=== PATIENT | male | born 1950 | race Caucasian/White ===

== ENCOUNTER 2017-11-06 11:03 | Inpatient (IN) | payer MEDICARE, BC ==
[~2017-11-06 11:03] MED LIST: ACET500 PO; ALLER-EASE180 MG PO; Flovent 110 MCG12 GM INH; NASACORT10.8 ML; Nexium40 MG PO; SALM50IP INH; TAMS.4ER PO
[2017-11-06 11:27] LABS: Source, Urine Clean Catch
[2017-11-06 11:29] LABS: Bilirubin, Urine Neg (Neg); Blood, Urine 2+ (Neg); Glucose Qualitative, Urine Neg (Neg); Ketones, Urine 4+ (Neg); Leukocyte Esterase, Urine 2+ (Neg); Nitrite, Urine Neg (Neg); Protein, Urine 2+ (Neg); Urobilinogen, Urine NORM (Normal)
[2017-11-06 11:34] LABS: Appearance, Urine Hazy (Clear); Color, Urine Yellow (P-Yellow)
[2017-11-06 11:35] LABS: White Blood Cells, Urine TNTC /hpf (0-5)
[2017-11-06 11:36] LABS: Bacteria Few /hpf; Mucus Light (0-Heavy); Squamous Epithelial Cells Not Seen /hpf (Few)
[2017-11-06 12:41] LABS: BASOPHILS ABSOLUTE AUTO 0.06 K/mm3 (0.00-0.23); BASOPHILS PERCENT AUTO 0 % (0-2); EOSINOPHILS ABSOLUTE AUTO 0.05 K/mm3 (0.00-0.68); EOSINOPHILS PERCENT AUTO 0 % (0-6); IMMATURE GRAN ABSOLUTE AUTO 0.34 K/mm3 (0.00-0.10); IMMATURE GRAN PERCENT AUTO 1 % (0-1); LYMPHOCYTES ABSOLUTE AUTO 3.49 K/mm3 (0.84-5.20); LYMPHOCYTES PERCENT AUTO 13 % (21-46); MONOCYTES ABSOLUTE AUTO 1.77 K/mm3 (0.16-1.47); MONOCYTES PERCENT AUTO 7 % (4-13); Mean Corpuscular HGB 30.5 pg (26.0-34.0); Mean Corpuscular HGB Conc 33.3 g/dL (31.5-36.5); Mean Corpuscular Volume 92 fL (80-100); Mean Platelet Volume 9.5 fL (9.1-12.4); NEUTROPHILS ABSOLUTE AUTO 21.29 K/mm3 (1.96-9.15); NEUTROPHILS PERCENT AUTO 79 % (41-73); Platelet Count 255 K/mm3 (150-400); RDW Coefficient Variation 13.2 % (11.7-14.2); RDW Standard Deviation 44.6 fL (35.1-46.3); Red Blood Cell Count 4.92 M/mm3 (4.30-5.90)
[2017-11-06 12:53] LABS: Anion Gap 10 mmol/L (6-16); Blood Urea Nitrogen 17 mg/dL (8-24); Bun/Creatinine Ratio 18.6 (12.0-20.0); CO2, Blood 25 mmol/L (21-32); Chloride, Blood 103 mmol/L (98-108); Creatinine, Blood 0.91 mg/dL (0.60-1.20); Glomerular Filtration Rate >60 (60-); Glucose, Blood 108 mg/dL (70-99); Sodium, Blood 138 mmol/L (136-145)
[2017-11-06] MEDS ORDERED: Zyprexa10 MG PO (13:43)
[2017-11-06] MEDS ORDERED: Lotrisone Cream45 GM TOP (13:43)
[2017-11-06] MEDS ORDERED: ALLEGRA ALLERG180 MG PO (13:49)
[2017-11-06] MEDS ORDERED: NASACORT10.8 ML (13:51)
[2017-11-07 05:16] LABS: BASOPHILS ABSOLUTE AUTO 0.05 K/mm3 (0.00-0.23); BASOPHILS PERCENT AUTO 0 % (0-2); EOSINOPHILS ABSOLUTE AUTO 0.02 K/mm3 (0.00-0.68); EOSINOPHILS PERCENT AUTO 0 % (0-6); Hematocrit 37.6 % (37.0-53.0); Hemoglobin 12.2 g/dL (13.5-17.5); IMMATURE GRAN ABSOLUTE AUTO 0.22 K/mm3 (0.00-0.10); IMMATURE GRAN PERCENT AUTO 1 % (0-1); LYMPHOCYTES ABSOLUTE AUTO 2.59 K/mm3 (0.84-5.20); LYMPHOCYTES PERCENT AUTO 11 % (21-46); MONOCYTES ABSOLUTE AUTO 1.87 K/mm3 (0.16-1.47); MONOCYTES PERCENT AUTO 8 % (4-13); Mean Corpuscular HGB Conc 32.4 g/dL (31.5-36.5); Mean Corpuscular Volume 92 fL (80-100); Mean Platelet Volume 9.5 fL (9.1-12.4); NEUTROPHILS ABSOLUTE AUTO 19.26 K/mm3 (1.96-9.15); NEUTROPHILS PERCENT AUTO 80 % (41-73); Platelet Count 235 K/mm3 (150-400); RDW Coefficient Variation 13.2 % (11.7-14.2); RDW Standard Deviation 44.7 fL (35.1-46.3); Red Blood Cell Count 4.07 M/mm3 (4.30-5.90); White Blood Cell Count 24.01 K/mm3 (4.00-11.30)
[2017-11-07 05:45] LABS: Anion Gap 10 mmol/L (6-16); Blood Urea Nitrogen 10 mg/dL (8-24); Bun/Creatinine Ratio 12.7 (12.0-20.0); CO2, Blood 22 mmol/L (21-32); Chloride, Blood 109 mmol/L (98-108); Creatinine, Blood 0.79 mg/dL (0.60-1.20); Glomerular Filtration Rate >60 (60-); Glucose, Blood 96 mg/dL (70-99); Potassium, Blood 4.3 mmol/L (3.5-5.5); Sodium, Blood 141 mmol/L (136-145)
[2017-11-07 06:00] LABS: Calcium, Blood 7.9 mg/dL (8.5-10.1)
[2017-11-09 05:33] LABS: BASOPHILS ABSOLUTE AUTO 0.05 K/mm3 (0.00-0.23); BASOPHILS PERCENT AUTO 1 % (0-2); EOSINOPHILS ABSOLUTE AUTO 0.27 K/mm3 (0.00-0.68); EOSINOPHILS PERCENT AUTO 3 % (0-6); Hematocrit 40.7 % (37.0-53.0); Hemoglobin 13.4 g/dL (13.5-17.5); IMMATURE GRAN ABSOLUTE AUTO 0.09 K/mm3 (0.00-0.10); IMMATURE GRAN PERCENT AUTO 1 % (0-1); LYMPHOCYTES ABSOLUTE AUTO 3.21 K/mm3 (0.84-5.20); LYMPHOCYTES PERCENT AUTO 31 % (21-46); MONOCYTES ABSOLUTE AUTO 0.57 K/mm3 (0.16-1.47); MONOCYTES PERCENT AUTO 5 % (4-13); Mean Corpuscular HGB 29.9 pg (26.0-34.0); Mean Corpuscular HGB Conc 32.9 g/dL (31.5-36.5); Mean Corpuscular Volume 91 fL (80-100); Mean Platelet Volume 8.8 fL (9.1-12.4); NEUTROPHILS ABSOLUTE AUTO 6.35 K/mm3 (1.96-9.15); NEUTROPHILS PERCENT AUTO 60 % (41-73); Platelet Count 323 K/mm3 (150-400); RDW Coefficient Variation 13.1 % (11.7-14.2); RDW Standard Deviation 43.5 fL (35.1-46.3); Red Blood Cell Count 4.48 M/mm3 (4.30-5.90); White Blood Cell Count 10.54 K/mm3 (4.00-11.30)
[2017-11-09] MEDS ORDERED: SACC250C PO (12:28)
[2017-11-09] MEDS ORDERED: AMOX875 PO (12:29)
== END 2017-11-09 15:18 | disposition home or self-care (01) | DRG 872 ==
LOC: ER 11:03 → MEDS 14:37
PROVIDERS: Emergency Medicine; Hospitalist
DX: A41.9 Sepsis, unspecified organism (principal); G44.40 Drug-induced headache, not elsewhere classified, not intractable; N39.0 Urinary tract infection, site not specified; J45.909 Unspecified asthma, uncomplicated; N41.9 Inflammatory disease of prostate, unspecified; B95.1 Streptococcus, group B, as the cause of diseases classified elsewhere; R20.8 Other disturbances of skin sensation; K21.9 Gastro-esophageal reflux disease without esophagitis; N40.1 Benign prostatic hyperplasia with lower urinary tract symptoms; R33.8 Other retention of urine; T36.0X5A Adverse effect of penicillins, initial encounter; Y92.239 Unspecified place in hospital as the place of occurrence of the external cause; Z79.51 Long term (current) use of inhaled steroids; Z79.899 Other long term (current) drug therapy
CPT/HCPCS: 36415; 51701; 51798; 80048; 81001; 83605; 85025; 87040; 87086; 87493; 94640; 94760; 96361; 96374; 96375; 99285; J0696; J1650; J2405; J3010; J3480; J7030

== ENCOUNTER → 2017-11-30 | Outpatient (CLI) | payer MEDICARE, BC ==
[~2017-11-30] MED LIST changes: +ALLEGRA ALLERG180 MG PO; +AMOX875 PO; +Lotrisone Cream45 GM TOP; +SACC250C PO; +Zyprexa10 MG PO
[2017-11-30 12:26] LABS: Bilirubin, Urine Neg (Neg); Blood, Urine 1+ (Neg); Glucose Qualitative, Urine Neg (Neg); Ketones, Urine Neg (Neg); Leukocyte Esterase, Urine 1+ (Neg); Nitrite, Urine Neg (Neg); Protein, Urine 2+ (Neg); Specific Gravity, Urine 1.025 (1.003-1.022); Urobilinogen, Urine NORM (Normal)
[2017-11-30 13:14] LABS: Appearance, Urine Clear (Clear); Color, Urine Yellow (P-Yellow)
[2017-11-30 13:16] LABS: Bacteria Rare /hpf; Calcium Oxalate Crystals Many /hpf; Red Blood Cells, Urine 0-2 /hpf (0-2); Squamous Epithelial Cells Not Seen /hpf (Few)
== END | disposition home or self-care (01) ==
LOC: LAB 08:40
PROVIDERS: Family Medicine
DX: N41.9 Inflammatory disease of prostate, unspecified (principal)
CPT/HCPCS: 81001; 87086

== ENCOUNTER → 2019-07-22 | Outpatient (CLI) | payer MEDICARE, BC | END | disposition home or self-care (01) | LOC: PLD 11:19 → LAB SHORT 11:19 | DX: D48.5 Neoplasm of uncertain behavior of skin (principal) | CPT/HCPCS: 88305 ==

== ENCOUNTER → 2020-07-22 | Outpatient (CLI) | payer MEDICARE, BC | END | disposition home or self-care (01) | LOC: LAB SHORT 10:41 → PLD 10:41 | DX: L57.0 Actinic keratosis (principal); L81.4 Other melanin hyperpigmentation | CPT/HCPCS: 88305; 88342 ==

== ENCOUNTER → 2020-10-20 | Outpatient (CLI) | payer MEDICARE, BC | END | disposition home or self-care (01) | LOC: LAB SHORT 11:21 → LAB 11:21 | DX: N39.0 Urinary tract infection, site not specified (principal) | CPT/HCPCS: 87077; 87086; 87186 ==

== ENCOUNTER → 2020-11-05 | Outpatient (CLI) | payer MEDICARE, BC ==
[2020-11-05 07:05] LABS: Source, Urine Clean Catch
[2020-11-05 10:15] LABS: Bacteria Mod /hpf; Calcium Oxalate Crystals Few /hpf; Squamous Epithelial Cells Few /hpf (Few)
[2020-11-05 10:16] LABS: Mucus Light (0-Heavy)
== END | disposition home or self-care (01) ==
LOC: OLS 07:04 → LAB SHORT 07:04 → LAB FUT 11-03 09:45
PROVIDERS: Urology
DX: N40.0 Benign prostatic hyperplasia without lower urinary tract symptoms (principal)
CPT/HCPCS: 81015; 87086

== ENCOUNTER 2021-10-14 10:37 | Day surgery (SDC) | payer MEDICARE, BC ==
[~2021-10-14] VITALS: Ht 165.1 cm; Wt 59.6 kg
== END 2021-10-14 12:53 | disposition home or self-care (01) ==
LOC: ORSCSDS 10:37
PROVIDERS: Internal Medicine Gastroenterology
PROC: 0DB98ZX Excision of Duodenum, Via Natural or Artificial Opening Endoscopic, Diagnostic (ICD-10-PCS; principal; 2021-10-14 12:00)
PROC: 0DB78ZX Excision of Stomach, Pylorus, Via Natural or Artificial Opening Endoscopic, Diagnostic (ICD-10-PCS; principal; 2021-10-14 12:00)
PROC: 0DBM8ZX Excision of Descending Colon, Via Natural or Artificial Opening Endoscopic, Diagnostic (ICD-10-PCS; principal; 2021-10-14 12:00)
DX: K21.9 Gastro-esophageal reflux disease without esophagitis (principal); Z86.010 Personal history of colon polyps; D12.4 Benign neoplasm of descending colon; K31.7 Polyp of stomach and duodenum; R10.13 Epigastric pain; J45.909 Unspecified asthma, uncomplicated; Z79.899 Other long term (current) drug therapy
CPT/HCPCS: 88305; 88342; J2704; J7120

== ENCOUNTER → 2021-11-01 | Outpatient (CLI) | payer MEDICARE, BC | END | disposition home or self-care (01) | LOC: LAB 11:14 → LAB SHORT 11:14 | DX: L82.1 Other seborrheic keratosis (principal) | CPT/HCPCS: 88305 ==

== ENCOUNTER → 2022-06-14 | Outpatient (CLI) | payer MEDICARE, BC | END | disposition home or self-care (01) | LOC: LAB 09:14 → LAB SHORT 09:14 | DX: N39.0 Urinary tract infection, site not specified (principal) | CPT/HCPCS: 87077; 87086; 87186 ==

== ENCOUNTER 2022-11-25 12:47 | Day surgery (SDC) | payer MEDICARE, BC ==
[~2022-11-25] VITALS: Ht 160 cm; Wt 61.2 kg
[~2022-11-25 12:47] MED LIST changes: +ACETAMINOPHEN; +MONT10T PO; +MULVITA PO
--- NOTE | 2022-11-25 17:12 | NUR ---
Discharge instructions reviewed with patient. Patient verbalizes understanding. Copy given to patient to take home. Dressing to procedure site clean, dry, intact with no visible drainage, swelling, erythema or bruising noted. Patient States Post-Procedure ride home has been arranged. Discharged via wheelchair to private car for ride home. ALL BELONINGS RETURNED TO PATIENT, RECEIVED ONE PERCOCET. Patient up to Ambulate independently. Gait steady.
== END 2022-11-25 23:07 | disposition home or self-care (01) ==
LOC: ORSCMMR 12:47 → ORD 14:30 → ORSCMMR 23:07
PROVIDERS: Surgery
PROC: 8E0W4CZ Robotic Assisted Procedure of Trunk Region, Percutaneous Endoscopic Approach (ICD-10-PCS; principal; 2022-11-25 14:30)
PROC: 0YUA4JZ Supplement Bilateral Inguinal Region with Synthetic Substitute, Percutaneous Endoscopic Approach (ICD-10-PCS; principal; 2022-11-25 14:30)
PROC: 0YUE4JZ Supplement Bilateral Femoral Region with Synthetic Substitute, Percutaneous Endoscopic Approach (ICD-10-PCS; principal; 2022-11-25 14:30)
DX: K40.20 Bilateral inguinal hernia, without obstruction or gangrene, not specified as recurrent (principal); K41.00 Bilateral femoral hernia, with obstruction, without gangrene, not specified as recurrent; N40.0 Benign prostatic hyperplasia without lower urinary tract symptoms; J45.909 Unspecified asthma, uncomplicated; K21.9 Gastro-esophageal reflux disease without esophagitis; Z85.09 Personal history of malignant neoplasm of other digestive organs; Z85.6 Personal history of leukemia; Z79.899 Other long term (current) drug therapy
CPT/HCPCS: 49650; S2900; A9270; C1781; J0690; J1100; J1885; J2405; J2704; J2795; J3010; J7120

== ENCOUNTER 2023-12-02 09:20 | Inpatient (IN) | payer MEDICARE, BC ==
[~2023-12-02] VITALS: Ht 165.1 cm; Wt 61.1 kg
[2023-12-02] VITALS (30 sets, daily range): BP systolic 98–127; BP diastolic 58–82
[2023-12-02] MEDS ORDERED: Ondansetron HCl 2 MG / ML 2ML Vial IV ONE (09:45)
[2023-12-02] MEDS ORDERED: NS 1,000 ML IV SCH ×4 (09:50→14:05)
[2023-12-02] MEDS ORDERED: CefTRIAXone Sodium 1,000 MG in NS 50 ML IV ONE (09:50)
[2023-12-02] MEDS ORDERED: Ketorolac Tromethamine 15mg Vial IV ONE (09:55)
[2023-12-02 10:10] LABS: Hematocrit 43.6 % (37.0-53.0); Hemoglobin 14.5 g/dL (13.5-17.5); Mean Corpuscular HGB 30.9 pg (26.0-34.0); Mean Corpuscular HGB Conc 33.3 g/dL (31.5-36.5); Mean Corpuscular Volume 93 fL (80-100); Mean Platelet Volume 8.6 fL (9.1-12.4); NRBC ABSOLUTE 0.02 K/mm3 (0.00-0.02); Platelet Count 213 K/mm3 (150-400); RDW Coefficient Variation 13.7 % (11.7-14.2); RDW Standard Deviation 46.5 fL (35.1-46.3); Red Blood Cell Count 4.69 M/mm3 (4.30-5.90); White Blood Cell Count 48.41 K/mm3 (4.00-11.30)
[2023-12-02 10:27] LABS: Albumin, Blood 4.1 g/dL (3.4-5.0); Albumin/Globulin Ratio 1.5 (0.8-1.8); Bilirubin, Total 0.9 mg/dL (0.1-1.0); Bun/Creatinine Ratio 12.6 (12.0-20.0); Calcium, Blood 9.1 mg/dL (8.5-10.1); Creatinine, Blood 0.95 mg/dL (0.60-1.20); Globulin, Blood 2.7 g/dL (2.2-4.0); Magnesium, Blood 2.1 mg/dL (1.6-2.4); Potassium, Blood 4.5 mmol/L (3.5-5.5); Total Protein, Blood 6.8 g/dL (6.4-8.2)
[2023-12-02 10:56] LABS: Source, Urine Clean Catch
[2023-12-02 11:04] LABS: Appearance, Urine Hazy (Clear); Bilirubin, Urine Neg (Neg); Blood, Urine 4+ (Neg); Color, Urine Yellow (P-Yellow); Glucose Qualitative, Urine Neg (Neg); Ketones, Urine Neg (Neg); Leukocyte Esterase, Urine 3+ (Neg); Nitrite, Urine Neg (Neg); Protein, Urine 2+ (Neg); Urobilinogen, Urine NORM (Normal)
[2023-12-02] MEDS ORDERED: Acetaminophen 500 MG Tab PO ONE (11:15)
[2023-12-02 11:55] LABS: BAND PERCENT MAN 4 % (0-8); BASOPHILS PERCENT MAN 0 % (0-2); EOSINOPHILS PERCENT MAN 0 % (0-6); LYMPHOCYTES % ATYPICAL MANUAL 2 % (0-0); LYMPHOCYTES ABSOLUTE MAN 39.21 K/mm3 (0.84-5.20); LYMPHOCYTES PERCENT MAN 79 % (21-46); MONOCYTES ABSOLUTE MAN 0.48 K/mm3 (0.16-1.47); MONOCYTES PERCENT MAN 1 % (4-13); NEUTROPHILS ABSOLUTE MAN 8.71 K/mm3 (1.96-9.15); SEG NEUTROPHILS PERCENT MAN 14 % (41-73); TOTAL CELLS COUNTED 100
[2023-12-02 12:25] LABS: Bacteria Mod /hpf; Squamous Epithelial Cells Rare /hpf (Few)
[2023-12-02] MEDS ORDERED: FLU VACC QS2023-24(6MOS UP)/PF 60 MCG/0.5 ML SYRINGE IM SCH (13:25)
[2023-12-02] MEDS ORDERED: Lactated Ringer's 1,000 ML IV SCH (13:25)
[2023-12-02] MEDS ORDERED: Prochlorperazine Edisylate 10 mg Vial IV PRN (13:25)
[2023-12-02] MEDS ORDERED: Acetaminophen 325 MG TABLET PO PRN (13:30)
[2023-12-02] MEDS ORDERED: Albuterol 2.5 MG/3 ML VIAL INH PRN (13:30)
[2023-12-02] MEDS ORDERED: Ketorolac Tromethamine 15mg Vial IV PRN (13:35)
[2023-12-02] MEDS ORDERED: Mometasone Furoate Inhaler 220 mcg 14 ACT INH SCH (13:45)
[2023-12-02] MEDS ORDERED: NS 1,000 ML IV ONE (14:00)
[2023-12-02] MEDS ORDERED: Ciprofloxacin 500 MG Tab PO SCH (14:00)
[2023-12-02] MEDS ORDERED: Mometasone/Formoterol MDI 100/5 mcg 13 GM INH SCH (14:10)
--- NOTE | 2023-12-02 17:09 | NUR ---
ADMIT PT ADMITTED TO ICU 8. PT ALERT AND ORIENTED, RESTING QUIETLY IN BED. LEVOPHED INFUSING AT 4MCG/MIN, DECREASED TO 2 MCG/MIN MAP WAS ABOVE 70. PT'S AND SON AT BEDSIDE. ORIENTED PT TO ROOM, CALL LIGHT, FALL PRECAUTIONS. DISCUSSED PLAN OF CARE. ALL QUESTIONS ANSWERED.
--- NOTE | 2023-12-02 19:46 | NUR ---
ASSUMED CARE OF PATIENT AT 1900. REPORT RECEIVED FROM QUANG Rausch RN. VSS AND NO ACUTE NEEDS IDENTIFIED AT THIS TIME. SEE SHIFT ASSESSMENT FOR FULL DETAILS.
[2023-12-02] MEDS ORDERED: Lactobacil 2-S.Thermo-Bifido 1 1 Cap PO SCH (21:00)
[2023-12-03] VITALS (36 sets, daily range): BP systolic 93–121; BP diastolic 57–70
[2023-12-03 03:44] LABS: Hematocrit 37.3 % (37.0-53.0); Hemoglobin 12.4 g/dL (13.5-17.5); Mean Corpuscular HGB 31.1 pg (26.0-34.0); Mean Corpuscular HGB Conc 33.2 g/dL (31.5-36.5); Mean Corpuscular Volume 94 fL (80-100); Mean Platelet Volume 8.9 fL (9.1-12.4); Platelet Count 165 K/mm3 (150-400); RDW Coefficient Variation 14.2 % (11.7-14.2); RDW Standard Deviation 48.9 fL (35.1-46.3); Red Blood Cell Count 3.99 M/mm3 (4.30-5.90); White Blood Cell Count 48.23 K/mm3 (4.00-11.30)
[2023-12-03 04:14] LABS: Bun/Creatinine Ratio 12.9 (12.0-20.0); Calcium, Blood 7.6 mg/dL (8.5-10.1); Creatinine, Blood 0.85 mg/dL (0.60-1.20); Potassium, Blood 3.7 mmol/L (3.5-5.5)
[2023-12-03 04:41] LABS: BAND PERCENT MAN 4 % (0-8); BASOPHILS PERCENT MAN 0 % (0-2); EOSINOPHILS PERCENT MAN 0 % (0-6); LYMPHOCYTES % ATYPICAL MANUAL 1 % (0-0); LYMPHOCYTES ABSOLUTE MAN 31.34 K/mm3 (0.84-5.20); LYMPHOCYTES PERCENT MAN 64 % (21-46); MONOCYTES ABSOLUTE MAN 1.92 K/mm3 (0.16-1.47); MONOCYTES PERCENT MAN 4 % (4-13); NEUTROPHILS ABSOLUTE MAN 14.95 K/mm3 (1.96-9.15); SEG NEUTROPHILS PERCENT MAN 27 % (41-73); TOTAL CELLS COUNTED 100
[2023-12-03] MEDS ORDERED: Pantoprazole Sodium 40 MG Tab PO SCH (06:00)
--- NOTE | 2023-12-03 06:20 | NUR ---
SHIFT SUMMARY PT REMAINED A&O X 4 T/O ENTIRETY OF SHIFT. ABLE TO FOLLOW COMMANDS AND MAKE PURPOSEFUL MOVEMENTS. REPORTED DYSURIA, MEDICATED PER EMAR WITH NEW ORDER FROM PROVIDER. MONITOR SHOWED SR WITH HR IN 90'S. BP STABLE WITH MAP > 65%. ON ROOM AIR WITH SATURATIONS > 90%. NO BM THIS SHIFT. UTILIZING BEDSIDE URINAL AND COMMODE WITH SBA. WILL CONTINUE TO MONITOR AND REPORT TO ONCOMING RN.
[2023-12-03] MEDS ORDERED: Montelukast Sodium 10 MG Tab PO SCH (09:00)
[2023-12-03] MEDS ORDERED: Multivitamins 1 Tab PO SCH (09:00)
[2023-12-03] MEDS ORDERED: Loratadine 10 MG Tab PO SCH (09:00)
[2023-12-03] MEDS ORDERED: CefTRIAXone Sodium 1,000 MG in NS 50 ML IV SCH (09:00)
[2023-12-03] MEDS ORDERED: Enoxaparin 40 MG/0.4 ML SYR SC SCH (09:00)
--- NOTE | 2023-12-03 12:27 | NUR ---
REASSESSMENT PT HAS BEEN RESTING IN BED THROUGHOUT THE MORNING. HE GOT UP TO THE CHAIR FOR LUNCH, BUT NOW IS BACK IN BED TRYING TO NAP. HE REMAINS ALERT AND ORIENTED. LUNGS CLEAR, RA. ST WITH RATE IN THE LOW 100S. BP STABLE WITH MAP ABOVE 65. HAS REMAINED OFF LEVOPHED SINCE YESTERDAY EVENING. PT STATES HE IS STILL HAVING SOME BURNING WITH URINATION, BUT IT IS GETTING BETTER. PT'S SON CAME BY AND WAS UPDATED. DR. CHOU ROUNDED AND GAVE OK FOR PT TO BE PCU STATUS.
--- NOTE | 2023-12-03 17:13 | NUR ---
SHIFT SUMMARY PT HAS CONTINUED TO MAINTAIN MAP ABOVE 65 WITHOUT ANY PRESSORS. HR IS IN THE 90-LOW 100S, SINUS. LUNGS ARE CLEAR, RA. PT IS ALERT AND ORIENTED. TMAX 99.7F THIS SHIFT. LITTLE BIT OF DECREASED APPETITE, BUT STILL EATING WELL. IV F INFUSING. VOIDING USING URINAL. PT'S SON AND WERE AT THE BEDSIDE TODAY. CONTINUING TO MONITOR.
--- NOTE | 2023-12-03 17:59 | NUR ---
TRANSFER REPORT GIVEN TO PROSPER OTOOLE. PT TRANSPORTED BY WITH RN. PT'S SON AT BEDSIDE AT TIME OF TRANSFER AND INFORMED OF NEW ROOM NUMBER. ALL BELONGINGS SENT TO PCU WITH PT. PT TOLERATED TRANSFER WELL.
--- NOTE | 2023-12-03 18:13 | NUR ---
PT TRANSFERED TO PCU 20 FROM ICU 08. REPORT RECIEVED FROM LALA IN ICU. VS STABLE. PT'S AND SON AT THE BEDSIDE. PT DID C/O OF SOME ABD DISCOMFORT R/T CONSTIPATION AND WAS GIVEN A BROWN COW (PRUNE JUICE WITH MELTED BUTTER). HE IS SETTLED IN THE BED AND GIVEN A URINAL BECAUSE OF POLYURIA. NS IS INFUSING AT 100MLS/HR PER EMAR. CALL LIGHT IN REACH, BED IN LOW, TWO SIDE RAILS UP. SEE NOTES FOR ANY UPDATES.
[2023-12-04 00:20] VITALS: BP 119/73
[2023-12-04 04:24] VITALS: BP 121/74
[2023-12-04 05:02] LABS: Hematocrit 38.2 % (37.0-53.0); Hemoglobin 12.6 g/dL (13.5-17.5); Mean Corpuscular Volume 94 fL (80-100); Mean Platelet Volume 9.6 fL (9.1-12.4); Platelet Count 157 K/mm3 (150-400); RDW Coefficient Variation 14.2 % (11.7-14.2); Red Blood Cell Count 4.06 M/mm3 (4.30-5.90); White Blood Cell Count 41.57 K/mm3 (4.00-11.30)
--- NOTE | 2023-12-04 05:25 | NUR ---
SHIFT SUMMARY A/Ox4 AND COOPERATIVE WITH CARE. ANSWERS QUESTIONS APPROPRIATELY AND ABLE TO MAKE HIS NEEDS KNOWN. NO ACUTE EVENTS OVERNIGHT. CARDIAC, REMAINS IN SR-ST 90-100'S WITH NO REPORTS OF CP OR PRESSURE. SBP HAS BEEN STABLE 110-120'S. RESPIRATORY, MAINTAINS SPO2 >90% ON RA. DENIES SOB OR DYSPNEA AT REST. GI., USES URINAL AT BEDSIDE INDEPENDENTLY VOIDING ORANGE COLORED URINE DUE TO DYSURIA MEDICATION. CONTINUES TO REPORT FEELINGS OF CONSTIPATION, BUT STATES WHATEVER THEY GAVE ME IN THE DAY TIME FEELS LIKE ITS WORKING . PT NOTED TO BE PASSING FREQUENT GAS. ABLE TO WALK TO BATHROOM WITH MINIMAL STAFF ASSIST. NS INFUSING PER EMAR. NO NEW ORDERS AT THIS TIME, WILL REPORT TO ONCOMING RN. RL VAZQUEZ OF THIS NOTE.
[2023-12-04 05:36] LABS: Albumin, Blood 2.7 g/dL (3.4-5.0); Albumin/Globulin Ratio 0.9 (0.8-1.8); Bilirubin, Total 0.5 mg/dL (0.1-1.0); Bun/Creatinine Ratio 8.4 (12.0-20.0); Calcium, Blood 8.2 mg/dL (8.5-10.1); Creatinine, Blood 0.83 mg/dL (0.60-1.20); Potassium, Blood 3.5 mmol/L (3.5-5.5); Total Protein, Blood 5.7 g/dL (6.4-8.2)
[2023-12-04 06:54] LABS: BASOPHILS PERCENT MAN 0 % (0-2); EOSINOPHILS PERCENT MAN 0 % (0-6); LYMPHOCYTES ABSOLUTE MAN 31.59 K/mm3 (0.84-5.20); LYMPHOCYTES PERCENT MAN 76 % (21-46); MONOCYTES ABSOLUTE MAN 0.41 K/mm3 (0.16-1.47); MONOCYTES PERCENT MAN 1 % (4-13); NEUTROPHILS ABSOLUTE MAN 9.56 K/mm3 (1.96-9.15); SEG NEUTROPHILS PERCENT MAN 23 % (41-73); TOTAL CELLS COUNTED 100
[2023-12-04 07:58] VITALS: BP 136/87
[2023-12-04] MEDS ORDERED: Potassium Chloride 20 MEQ TabCR PO ONE (08:00)
[2023-12-04] MEDS ORDERED: Magnesium Hydroxide Conc 10 ML UDC PO ONE (08:10)
[2023-12-04] MEDS ORDERED: Sennosides 8.6 MG Tab PO SCH (09:00)
[2023-12-04] MEDS ORDERED: Polyethylene Glycol 3350 17 gm PO SCH (09:00)
[2023-12-04] MEDS ORDERED: MIRALAX1714 PO (11:33)
[2023-12-04] MEDS ORDERED: CIPR500 PO (11:33)
--- NOTE | 2023-12-04 12:10 | NUR ---
DISCHARGE DISCHARGE INSTRUCTIONS PROVIDED TO PATIENT AND FAMILY AT BEDSIDE. PT EDUCATED ON DIAGNOSIS AND NEW MEDICATIONS. ALL QUESTIONS ANSWERED. PT TAKEN OUT VIA WC
== END 2023-12-04 12:00 | disposition home or self-care (01) | DRG 871 ==
LOC: ER 09:20 → PCU 09:21 → ICUE 16:38 → PCU 12-03 17:36
PROVIDERS: Physician Assistant; ADMIT Internal Medicine
PROC: 3E03329 Introduction of Other Anti-infective into Peripheral Vein, Percutaneous Approach (ICD-10-PCS; principal; 2023-12-02)
PROC: 3E033XZ Introduction of Vasopressor into Peripheral Vein, Percutaneous Approach (ICD-10-PCS; 2023-12-02)
DX: A41.51 Sepsis due to Escherichia coli [E. coli] (principal); R65.21 Severe sepsis with septic shock; N39.0 Urinary tract infection, site not specified; C91.10 Chronic lymphocytic leukemia of B-cell type not having achieved remission; J45.909 Unspecified asthma, uncomplicated; K21.9 Gastro-esophageal reflux disease without esophagitis; Z79.51 Long term (current) use of inhaled steroids
CPT/HCPCS: 36415; 71046; 80048; 80053; 81001; 82330; 83605; 83735; 85025; 87040; 87077; 87086; 87186; 93306; 94640; 94664; 94760; 94762; 96361; 96365; 96367; 96375; 99284-25; A9270; J0696; J1650; J1885; J2405; J7030; J7060

== ENCOUNTER → 2024-09-10 | Outpatient (CLI) | payer MEDICARE, BC ==
[~2024-09-10] MED LIST changes: +CIPR500 PO; +MIRALAX1714 PO
[2024-09-10 10:58] LABS: Source, Urine Clean Catch
[2024-09-10 12:01] LABS: Appearance, Urine Clear (Clear); Bilirubin, Urine Neg (Neg); Blood, Urine Neg (Neg); Color, Urine Yellow (P-Yellow); Glucose Qualitative, Urine Neg (Neg); Ketones, Urine Neg (Neg); Leukocyte Esterase, Urine Neg (Neg); Nitrite, Urine Neg (Neg); Protein, Urine Neg (Neg); Urobilinogen, Urine NORM (Normal)
== END | disposition home or self-care (01) ==
LOC: LAB SHORT 10:50 → LAB 10:50
PROVIDERS: Student in an Organized Health Care Education/Training Program
DX: R35.1 Nocturia (principal)
CPT/HCPCS: 81003

== ENCOUNTER → 2025-06-25 | Outpatient (CLI) | payer MEDICARE, BC ==
[2025-06-25 13:20] LABS: Hematocrit 44.3 % (37.0-53.0); Hemoglobin 14.3 g/dL (13.5-17.5); Mean Corpuscular HGB Conc 32.3 g/dL (31.5-36.5); Mean Corpuscular Volume 92 fL (80-100); NRBC ABSOLUTE 0.00 K/mm3 (0.00-0.02); NRBC Auto 0.0 /100 WBC (0.0-0.2); Platelet Count 262 K/mm3 (150-400); RDW Coefficient Variation 15.3 % (11.7-14.2); RDW Standard Deviation 51.5 fL (35.1-46.3)
[2025-06-25 13:46] LABS: Alanine Aminotransfer (ALT/SGP 24 U/L (12-78); Albumin, Blood 4.0 g/dL (3.4-5.0); Albumin/Globulin Ratio 1.6 (0.8-1.8); Anion Gap 11 mmol/L (3-11); Aspartate Aminotrans (AST/SGOT 17 U/L (12-37); Bilirubin, Total 0.4 mg/dL (0.1-1.0); Blood Urea Nitrogen 17 mg/dL (8-24); CHOL/HDL RATIO 2.1; CO2, Blood 26 mmol/L (21-32); Calcium, Blood 8.7 mg/dL (8.5-10.1); Chloride, Blood 106 mmol/L (98-108); Cholesterol 134 mg/dL (50-200); Creatinine, Blood 0.91 mg/dL (0.60-1.20); Globulin, Blood 2.5 g/dL (2.2-4.0); Glucose, Blood 80 mg/dL (70-99); HDL Cholesterol 63 mg/dL (>39); LDL/HDL RATIO 1.0; Low Density Lipoprotein Chol 61 mg/dL (0-110); Potassium, Blood 3.8 mmol/L (3.5-5.5); Sodium, Blood 139 mmol/L (136-145); Total Protein, Blood 6.5 g/dL (6.4-8.2); Triglycerides 49 mg/dL (30-160); Very Low Density Lipoprot Chol 9 mg/dL (6-32)
[2025-06-25 14:51] LABS: BASOPHILS ABSOLUTE MAN 0.00 K/mm3 (0.00-0.23); BASOPHILS PERCENT MAN 0 % (0-2); EOSINOPHILS ABSOLUTE MAN 0.00 K/mm3 (0.00-0.68); EOSINOPHILS PERCENT MAN 0 % (0-6); LYMPHOCYTES % ATYPICAL MANUAL 2 % (0-0); LYMPHOCYTES ABSOLUTE MAN 5.46 K/mm3 (0.84-5.20); LYMPHOCYTES PERCENT MAN 45 % (21-46); MONOCYTES ABSOLUTE MAN 1.04 K/mm3 (0.16-1.47); MONOCYTES PERCENT MAN 9 % (4-13); NEUTROPHILS ABSOLUTE MAN 5.11 K/mm3 (1.96-9.15); SEG NEUTROPHILS PERCENT MAN 44 % (41-73)
== END ==
LOC: LAB SHORT 07:45 → LAB 07:45
PROVIDERS: Student in an Organized Health Care Education/Training Program
DX: C91.10 Chronic lymphocytic leukemia of B-cell type not having achieved remission (principal); E78.2 Mixed hyperlipidemia; N40.1 Benign prostatic hyperplasia with lower urinary tract symptoms; R35.1 Nocturia
CPT/HCPCS: 80053; 80061; 85025